=== PATIENT | male | born 1990 | race American Indian/Alaskan Native ===

== ENCOUNTER 2018-04-28 14:41 | Emergency (ER) | payer SELFPAY ==
[2018-04-28 14:51] VITALS: RESP 18; O2SAT 100
--- NOTE | 2018-04-28 15:47 | C.PDOC ---
History Of Present Illness 27 years old male presents to ED for complaints of sharp intermittent anterior mid-sternal chest pain that began 2 weeks ago. In contrary to triage, patient denies lightheadedness or dizziness. Patient also denies trauma, cough, shortness of breath, or any other physical complaints. Time Seen by Provider: 04/28/18 14:54 Chief Complaint (Nursing): Dizziness/Lightheaded History Per: Patient History/Exam Limitations: no limitations Onset/Duration Of Symptoms: Hrs, Intermittent Episodes Current Symptoms Are (Timing): Still Present Associated Symptoms Preceding Syncopal Episode: No Predromal Symptoms (Sudden Onset) Seizure Or Post-ictal Symptoms: None Fall Associated With With Symptoms: No Recent travel outside of the [place]: No - Symptoms Of CVA Recent Aspirin Use: Unknown Current Coumadin Use?: Unknown Recent Head Trauma: No Past Medical History Reviewed: Historical Data, Nursing Documentation, Vital Signs Vital Signs: Last Vital Signs Temp 98.0 F 04/28/18 14:49 Pulse 70 04/28/18 15:16 Resp 18 04/28/18 14:49 BP 111/75 04/28/18 15:16 Pulse Ox 100 04/28/18 14:49 - Medical History PMH: No Chronic Diseases Surgical History: No Surg Hx Family History: States: No Known Family Hx - Social History Hx Alcohol Use: No Hx Substance Use: No - Immunization History Hx Tetanus Toxoid Vaccination: No Hx Influenza Vaccination: No Hx Pneumococcal Vaccination: No Review Of Systems Except As Marked, All Systems Reviewed And Found Negative. Constitutional: Negative for: Fever, Chills Cardiovascular: Positive for: Chest Pain (anterior mid-sternal ) Respiratory: Negative for: Cough, Shortness of Breath Gastrointestinal: Negative for: Nausea, Vomiting, Diarrhea Skin: Negative for: Rash Neurological: Negative for: Weakness, Numbness Physical Exam - Physical Exam Appears: Well, Non-toxic, No Acute Distress Skin: Normal Color, Warm, Dry, No Rash Head: Atraumatic, Normacephalic Eye(s): bilateral: Normal Inspection, PERRL, EOMI Oral Mucosa: Moist Neck: Normal ROM, Supple Chest: Symmetrical, No Tenderness Cardiovascular: Rhythm Regular Respiratory: Normal Breath Sounds, No Rales, No Rhonchi, No Wheezing Gastrointestinal/Abdominal: Normal Exam, Bowel Sounds (Active ), Soft, No Tenderness, No Distention, No Guarding, No Rebound Back: Normal Inspection, No CVA Tenderness Extremity: Normal ROM Extremity: Bilateral: Atraumatic, Normal Color And Temperature, Normal ROM Pulses: Left Radial: Normal, Right Radial: Normal Neurological/Psych: Oriented x3, Normal Speech, Other (No focal deficits ) Gait: Steady ED Course And Treatment O2 Sat by Pulse Oximetry: 100 (RA) Pulse Ox Interpretation: Normal Medical Decision Making Medical Decision Making: Plan: * CXR EKG: * Normal sinus rhythm at 64 bpm * Negative EKG On re-exam, the patient reports improvement of symptoms. Lungs are CTA, heart is RRR, abdomen is soft, non-tender and the patient is tolerating PO well. Follow up with the medical doctor within 1-2 days. Return if worsened. Disposition - Disposition Referrals: [facility] [Outside] [facility] [facility] [Outside] Disposition: HOME/ ROUTINE Disposition Time: 16:39 Condition: GOOD Additional Instructions: Follow up with the medical doctor within 1-2 days. Return if worsened. Prescriptions: Naproxen [Naprosyn] 500 mg PO BID #20 tab Instructions: Costochondritis (DC) Forms: [employer] (Surinamese), Work Excuse - Clinical Impression Clinical Impression: Costochondritis - PA / FLIGHT SERVICE SPECIALIST / Resident Statement MD/DO has reviewed & agrees with the documentation as recorded. - Scribe Statement The provider has reviewed the documentation as recorded by the Armida Mcrae All medical record entries made by the Javiibgregory were at my direction and personally dictated by me. I have reviewed the chart and agree that the record accurately reflects my personal performance of the history, physical exam, medical decision making, and the department course for this patient. I have also personally directed, reviewed, and agree with the discharge instructions and disposition.
[2018-04-28 16:55] VITALS: BP 130/52; PULSE 72; TEMP 98
--- NOTE | 2018-04-28 17:08 | RAD ---
Date of service: 04/28/2018 HISTORY: chest pain COMPARISON: Chest radiographs 05/27/2010. TECHNIQUE: Chest PA and lateral FINDINGS: LUNGS: No active pulmonary disease. PLEURA: No significant pleural effusion identified. No pneumothorax apparent. CARDIOVASCULAR: No aortic atherosclerotic calcification present. Normal cardiac size. No pulmonary vascular congestion. OSSEOUS STRUCTURES: No significant abnormalities. VISUALIZED UPPER ABDOMEN: Normal. OTHER FINDINGS: None. IMPRESSION: No interval acute cardiopulmonary disease appreciated.
== END 2018-04-28 16:55 | disposition home or self-care (01) ==
LOC: C.ER 14:41
DX: M94.0 Chondrocostal junction syndrome [Tietze] (principal)

== ENCOUNTER 2018-05-03 15:44 | Emergency (ER) | payer SELFPAY ==
[2018-05-03 15:58] VITALS: O2SAT 99
[2018-05-03 16:26] LABS: BASO % 0.6 % (0.0-2.0); EOS # 0.1 K/uL (0.0-0.7); EOS % 1.3 % (0.0-4.0); HEMOGLOBIN 13.6 g/dL (12.0-18.0); LYMPH # 1.9 K/uL (1.0-4.3); LYMPH % 23.8 % (20.0-40.0); MEAN CORPUSCULAR HEMOGLOBIN 28.1 pg (27.0-31.0); MEAN CORPUSCULAR HGB CONC 31.9 g/dL (33.0-37.0); MEAN PLATELET VOLUME 10.3 fL (7.2-11.7); MONO # 0.8 K/uL (0.0-0.8); MONO % 9.5 % (0.0-10.0); NEUT # 5.2 K/uL (1.8-7.0); NEUT % 64.8 % (50.0-75.0); RBC 4.85 Mil/uL (4.40-5.90); RED CELL DISTRIBUTION WIDTH 13.9 % (11.5-14.5); WHITE BLOOD COUNT 8.1 K/uL (4.8-10.8)
--- NOTE | 2018-05-03 16:32 | RAD ---
Date of service: 05/03/2018 HISTORY: Shortness of breath COMPARISON: 04/28/2018. TECHNIQUE: Chest PA and lateral FINDINGS: LINES AND TUBES: None. LUNG AND PLEURA: The lungs are well inflated and clear. No pleural effusion or pneumothorax. HEART AND MEDIASTINUM: The heart is not enlarged. No aortic atherosclerotic calcifications present. The hilar and mediastinal contours are within normal limits. SKELETAL STRUCTURES: The bony structures are within normal limits for the patient's age. VISUALIZED UPPER ABDOMEN: Normal. OTHER FINDINGS: None. IMPRESSION: No active pulmonary disease.
[2018-05-03 16:48] LABS: ALB/GLOB RATIO 1.4 (1.0-2.1); ALBUMIN 4.4 g/dL (3.5-5.0); ALT/SGPT 10 U/L (21-72); AST/SGOT 39 U/L (17-59); BLOOD UREA NITROGEN 16 mg/dL (9-20); CALCIUM 8.6 mg/dl (8.6-10.4); GFR NON-AFRICAN AMERICAN > 60
--- NOTE | 2018-05-03 17:07 | C.PDOC ---
History Of Present Illness 27yo male, otherwise well, comes to ER for evaluation of a right sided sharp chest pain x 3 weeks. He states the pain is worse with movement and deep inspiration. Patient otherwise denies radiation of pain, weakness, sweats, shortness of breath or nausea. Patient has been taking naproxen, with some relief in pain. He presents today due to persistence of pain. Patient denies history of DVT or PE as well. PMD: None Time Seen by Provider: 05/03/18 16:06 Chief Complaint (Nursing): Chest Pain History Per: Patient History/Exam Limitations: no limitations Onset/Duration Of Symptoms: Persistent Current Symptoms Are (Timing): Still Present Quality: Sharp Associated Symptoms: denies: Nausea, Dyspnea, Diaphoresis, Syncope Additional History Per: Patient Past Medical History Reviewed: Historical Data, Nursing Documentation, Vital Signs Vital Signs: Last Vital Signs Temp 98.4 F 05/03/18 15:57 Pulse 72 05/03/18 15:57 Resp 20 05/03/18 15:57 BP 120/69 05/03/18 15:57 Pulse Ox 99 05/03/18 15:57 - Medical History PMH: No Chronic Diseases Denies: Deep Vein Thrombosis, Pulmonary Embolism Surgical History: No Surg Hx Family History: States: No Known Family Hx - Social History Hx Alcohol Use: No Hx Substance Use: No - Immunization History Hx Tetanus Toxoid Vaccination: No Hx Influenza Vaccination: No Hx Pneumococcal Vaccination: No Review Of Systems Except As Marked, All Systems Reviewed And Found Negative. Constitutional: Negative for: Fever, Chills, Sweats Cardiovascular: Positive for: Chest Pain Respiratory: Negative for: Cough, Shortness of Breath Gastrointestinal: Negative for: Vomiting Musculoskeletal: Negative for: Neck Pain, Shoulder Pain, Arm Pain Physical Exam - Physical Exam Appears: Non-toxic, No Acute Distress Skin: Normal Color, Warm, Dry Head: Atraumatic, Normacephalic Eye(s): bilateral: Normal Inspection Neck: Normal ROM, Supple Chest: Symmetrical, Tenderness (reproducible tenderness right anterior chest wall) Cardiovascular: Rhythm Regular Respiratory: Normal Breath Sounds, No Wheezing Gastrointestinal/Abdominal: Normal Exam, Soft, No Tenderness Back: Normal Inspection Extremity: Normal ROM Neurological/Psych: Oriented x3 ED Course And Treatment - Laboratory Results Result Diagrams: 05/03/18 16:21 05/03/18 16:21 Lab Results: Troponin I < 0.0120 ng/mL (0.00-0.120) 05/03/18 16:21 Total Bilirubin 0.5 mg/dL (0.2-1.3) 05/03/18 16:21 AST 39 U/L (17-59) 05/03/18 16:21 ALT 10 U/L (21-72) L 05/03/18 16:21 Alkaline Phosphatase 82 U/L (38-126) 05/03/18 16:21 Total Protein 7.5 g/dL (6.3-8.3) 05/03/18 16:21 Albumin 4.4 g/dL (3.5-5.0) 05/03/18 16:21 Globulin 3.1 gm/dL (2.2-3.9) 05/03/18 16:21 Albumin/Globulin Ratio 1.4 (1.0-2.1) 05/03/18 16:21 ECG: Interpreted By Me, Viewed By Me ECG Rhythm: Sinus Rhythm Interpretation Of ECG: Normal intervals, normal axis, j-point ST segment elevation O2 Sat by Pulse Oximetry: 99 (RA) Pulse Ox Interpretation: Normal - Radiology CXR: Interpreted by Me, Viewed By Me CXR Interpretation: Yes: No Acute Disease Against Medical Advice - AMA Patient Left Against Medical Advice: 1720 The patient declines admission to the hospital and wishes to leave the Emergency Department. This action is against my medical advice. This decision was made with informed refusal. The patient was told that admission to the hospital is necessary. Explanation of the reasons why were discussed. The risks of leaving were explained to the patient and include, but are not limited to, worsening of known or currently unknown conditions, permanent d isability and from undiagnosed or untreated conditions. The patient has the capacity to make this informed decision and understands my explanation of the current medical problem and risks of leaving. The patient voluntarily accepts these risks and signed an AMA form documenting our conversation. The patient was given the opportunity to ask questions and reconsider. The patient was encouraged to return to the Emergency Department at any time for further care. Medical Decision Making Medical Decision Makinyo male with right sided chest pain; unlikely acute IN Case discussed with Dr. Pastrana (code heart) who recommends cardiac enzyme tests Plan: -- Labs -- EKG -- Toradol 30mg IV -- Aspirin 81mg PO -- CXR 1700 Labs reviewed, troponin < 0.[address] Pastrana, who recommends admission for observation [address] Villaseñor, who accepts patient for admission. 1720 Plan of care discussed with patient, who states he does not want admission and wishes to leave against medical advice. Risks of leaving AMA discussed extensively with patient, who expresses understan ding but still wishes to leave AMA. Return precautions discussed extensively with patient. Disposition - Disposition Disposition: AGAINST MEDICAL ADVICE Disposition Time: 17:20 Condition: STABLE Additional Instructions: you are signing out against medical advice and therefore assuming responsibility of your care you do no hold my staff and I responsible for potential negative outcome including return to Er at anytime. Follow up with your doctor immediately. Instructions: Chest Pain Forms: Work Excuse - Clinical Impression Clinical Impression: Chest pain - Scribe Statement The provider has reviewed the documentation as recorded by the Armida Robles Provider Attestation: All medical record entries made by the Armida were at my direction and personally dictated by me. I have reviewed the chart and agree that the record accurately reflects my personal performance of the history, physical exam, medical decision making, and the department course for this patient. I have also personally directed, reviewed, and agree with the discharge instructions and disposition.
[2018-05-03 17:35] VITALS: BP 116/74; PULSE 70; RESP 18; TEMP 97.7
--- NOTE | 2018-05-08 00:04 | CARD ---
APPROVED REPORT Date of service: 05/03/2018 EKG Measurement Heart [id number] <Conclusion> Normal sinus rhythm with sinus arrhythmia ST elevation, early repolarization changes v acute pericarditis Abnormal ECG
--- NOTE | 2018-05-08 00:06 | CARD ---
APPROVED REPORT Date of service: 05/03/2018 EKG Measurement Heart [id number] <Conclusion> Normal sinus rhythm ST elevation, consider early repolarization changes v acute pericarditis Abnormal ECG
== END 2018-05-03 17:40 | disposition left against medical advice (07) ==
LOC: C.ER 15:44
DX: R07.9 Chest pain, unspecified (principal)
CPT/HCPCS: 71046; 80053; 82550; 84484; 85025; 96374; 99285; J1885

== ENCOUNTER 2018-05-04 18:50 | Emergency (ER) | payer SELFPAY ==
[2018-05-04 19:54] VITALS: BP 121/79; PULSE 66; RESP 14; O2SAT 100
[2018-05-04 19:56] VITALS: TEMP 98
--- NOTE | 2018-05-04 20:26 | C.PDOC ---
History Of Present Illness 27 y/o male pt presents to the ER c/o intermittent chest pain for x3 weeks. Chest is non-pleuritic and non exertional. Pt notes the pain feels like something is pressing on his chest and is located on the mid-sternal. Chest pain would last 5-10 minutes and sometimes SOB with accompany the pain. Pt felt anxious about his chest pain today which prompted his visit to the ER. Pt notes he took naprosyn which gives him mild relief. Pt was seen x2 days ago for same complaint but signed an AMA. Pt currently does not have any chest pain and denies any other associated sx. Time Seen by Provider: 05/04/18 19:39 Chief Complaint (Nursing): Chest Pain History Per: Patient History/Exam Limitations: no limitations Onset/Duration Of Symptoms: Days (x3 weeks) Current Symptoms Are (Timing): Still Present Past Medical History Reviewed: Historical Data, Nursing Documentation, Vital Signs Vital Signs: Last Vital Signs Temp 98 F 05/04/18 19:55 Pulse 66 05/04/18 19:48 Resp 14 05/04/18 19:48 BP 121/79 05/04/18 19:48 Pulse Ox 100 05/04/18 19:48 Family History: States: No Known Family Hx - Social History Hx Alcohol Use: No Hx Substance Use: No - Immunization History Hx Tetanus Toxoid Vaccination: No Hx Influenza Vaccination: No Hx Pneumococcal Vaccination: No Review Of Systems Constitutional: Negative for: Fever, Chills Cardiovascular: Positive for: Chest Pain (intermittent ) Respiratory: Positive for: Shortness of Breath (intermittent ) Gastrointestinal: Negative for: Nausea, Vomiting Genitourinary: Negative for: Dysuria, Hematuria Musculoskeletal: Negative for: Back Pain Skin: Negative for: Rash Neurological: Negative for: Weakness, Numbness Psych: Negative for: Anxiety Physical Exam - Physical Exam Appears: Non-toxic, No Acute Distress Skin: Warm, Dry Head: Normacephalic Eye(s): bilateral: Normal Inspection Nose: Normal Oral Mucosa: Moist Throat: Normal Neck: Normal ROM, Supple Chest: Symmetrical, No Deformity Cardiovascular: Rhythm Regular Respiratory: Normal Breath Sounds Gastrointestinal/Abdominal: Soft, No Tenderness Back: No CVA Tenderness Extremity: Normal ROM (x4) Neurological/Psych: Oriented x3, Normal Speech ED Course And Treatment ECG: Interpreted By Me ECG Rhythm: Sinus Rhythm Interpretation Of ECG: Normal axis, normal intervals, J point elevation likely benign early repolarization O2 Sat by Pulse Oximetry: 100 (RA) Pulse Ox Interpretation: Normal Medical Decision Making Medical Decision Making: Last EKG 05/03 nml sinus 65 nml axis nml interval benign early repolarization no stemi Patient was seen two days ago for similar chest pain. EKG unchanged since then. CXR then was unremarkable. Cardiac enzymes done and were negative. Patient was advised to stay for observation, but signed out AMA. However patient with similar EKG today and no chest pain currently. Advised outpatient followup with PMD. Disposition - Disposition Disposition: HOME/ ROUTINE Disposition Time: 20:25 Condition: GOOD Additional Instructions: MARLENI ROACH, thank you for letting us take care of you today. Your provider was Paulina Alvarado MD and you were treated for SOB. The emergency medical care you received today was directed at your acute symptoms. If you were prescribed any medication, please fill it and take as directed. It may take several days for your symptoms to resolve. Return to the Emergency Department if your symptoms worsen, do not improve, or if you have any other problems. Please contact your doctor or call one of the physicians/clinics you have been referred to that are listed on the Patient Visit Information form that is included in your discharge packet. Bring any paperwork you were given at discharge with you along with any medications you are taking to your follow up visit. Our treatment cannot replace ongoing medical care by a primary care provider outside of the emergency department. Thank you for allowing the [facility] team to be part of your care today. If you had an X-Ray or CT scan: A Radiologist will review the ED reading if any change in treatment is needed we will contact you. If you had a blood, urine, or wound culture: It will take several days for the results, if any change in treatment is needed we will contact you. If you had an STI test: It will take 48 hours for the results. Please call after 1 week if you have not heard back. Instructions: Chest Pain (DC) Forms: [employer] (Hungarian), Work Excuse - Clinical Impression Clinical Impression: Chest discomfort - Scribe Statement The provider has reviewed the documentation as recorded by the Scribe Kristi Dixon Provider Attestation: All medical record entries made by the Scribe were at my direction and personally dictated by me. I have reviewed the chart and agree that the record accurately reflects my personal performance of the history, physical exam, medical decision making, and the department course for this patient. I have also personally directed, reviewed, and agree with the discharge instructions and disposition.
== END 2018-05-04 20:49 | disposition home or self-care (01) ==
LOC: C.ER 18:50
DX: R07.89 Other chest pain (principal)

== ENCOUNTER 2018-06-01 14:28 | Emergency (ER) | payer SELFPAY ==
[2018-06-01 14:32] VITALS: BMI 25.0
[2018-06-01 14:34] VITALS: PULSE 64; TEMP 97.8
--- NOTE | 2018-06-01 15:34 | C.PDOC ---
History Of Present Illness 27 y/o male presents to ED for medical evaluation of SOB x2 weeks. Patient states that he was eating food, particularly solids, when he noticed difficulty breathing. He notes this is the first time this happened to him. He called EMS and was taken to [facility] where he was diagnosed with reflux, and given antireflux medication, unknown name, twice a day. States he notices some improvement but not much. In addition, he complains of SOB when walking but denies SOB with exercise or any other activity. States if he walks a block, he starts having difficulty breathing. Denies history of asthma or smoking. Also denies fever, chills, chest pain, nausea, vomiting, abdominal pain, or recent illness. He reports he hasnt seen any specialist for his current complaint. Chief Complaint (Nursing): Shortness Of Breath History Per: Patient History/Exam Limitations: no limitations Onset/Duration Of Symptoms: Days Current Symptoms Are (Timing): Still Present Past Medical History Reviewed: Historical Data, Nursing Documentation, Vital Signs Vital Signs: Last Vital Signs Temp 97.8 F 06/01/18 14:32 Pulse 64 06/01/18 14:32 Resp 18 06/01/18 14:32 BP 115/73 06/01/18 14:32 Pulse Ox 100 06/01/18 14:32 - Medical History PMH: Denies: Deep Vein Thrombosis, Pulmonary Embolism Family History: States: No Known Family Hx - Social History Hx Alcohol Use: No Hx Substance Use: No - Immunization History Hx Tetanus Toxoid Vaccination: No Hx Influenza Vaccination: No Hx Pneumococcal Vaccination: No Review Of Systems Constitutional: Negative for: Fever, Chills Cardiovascular: Negative for: Chest Pain Respiratory: Positive for: Shortness of Breath Gastrointestinal: Negative for: Nausea, Vomiting, Abdominal Pain, Diarrhea Genitourinary: Negative for: Dysuria Musculoskeletal: Negative for: Neck Pain, Back Pain Neurological: Negative for: Headache, Dizziness Physical Exam - Physical Exam Appears: Non-toxic, No Acute Distress Skin: Warm, Dry Head: Atraumatic, Normacephalic Eye(s): bilateral: Normal Inspection Ear(s): Bilateral: TM Obscured By Wax Oral Mucosa: Moist Throat: Erythema, No Exudate Neck: Supple Cardiovascular: Rhythm Regular, No Murmur Respiratory: Normal Breath Sounds, No Rales, No Rhonchi, No Wheezing Gastrointestinal/Abdominal: Soft, No Tenderness Extremity: No Pedal Edema Extremity: Bilateral: Atraumatic, Normal Color And Temperature, Normal ROM Neurological/Psych: Oriented x3, Normal Speech, Normal Motor, Normal Sensation ED Course And Treatment ECG: Interpreted By Me, Viewed By Me ECG Rhythm: Sinus Bradycardia (with sinus arrhythmia) Interpretation Of ECG: Early repolarization Rate From EC O2 Sat by Pulse Oximetry: 100 (RA) Pulse Ox Interpretation: Normal - Other Rad CXR X-Ray: Read By Radiologist Interpretation: Findings: No focal infiltrate or effusion. Heart size within normal limits. Impression. No focal infiltrate or effusion. Medical Decision Making Medical Decision Making: Plan: --EKG --Chest XR Disposition Counseled Patient/Family Regarding: Studies Performed, Diagnosis, Need For Followup, Rx Given - Disposition Referrals: [facility] [Outside] Disposition: HOME/ ROUTINE Disposition Time: 17:01 Condition: STABLE Additional Instructions: Follow up in Clinic to see GI specialist for Reflux and Master Sheet Clerk for Chest pain/ SOB Start Pepcid 20mg in the morning and Zantac 150mg at night Avoid foods listed in patient education packet Return to ED if symptoms worsen Prescriptions: Famotidine [Pepcid] 20 mg PO DAILY #30 tab Ranitidine HCl [Zantac] 150 mg PO HS #30 tablet Instructions: Acid Reflux (Gastroesophageal Reflux Disease), Adult (DC), Shortness of Breath (Dyspnea) (DC) Forms: [employer] (Djiboutian) - Clinical Impression Clinical Impression: SOB (shortness of breath) on exertion, GERD (gastroesophageal reflux disease) - PA / WOOL GROWER / Resident Statement MD/DO has reviewed & agrees with the documentation as recorded. - Scribe Statement The provider has reviewed the documentation as recorded by the Scribe Josselyn Sandhu All medical record entries made by the Javiibgregory were at my direction and personally dictated by me. I have reviewed the chart and agree that the record accurately reflects my personal performance of the history, physical exam, medical decision making, and the department course for this patient. I have also personally directed, reviewed, and agree with the discharge instructions and disposition.
[2018-06-01 15:39] VITALS: RESP 16
--- NOTE | 2018-06-01 16:14 | RAD ---
Chest x-ray two views HISTORY: Shortness of breath. Comparison: 05/03/2018 Findings: No focal infiltrate or effusion. Heart size within normal limits. Impression No focal infiltrate or effusion.
[2018-06-01 17:13] VITALS: BP 118/79
[2018-06-01 18:18] VITALS: O2SAT 100
--- NOTE | 2018-06-03 17:20 | CARD ---
APPROVED REPORT Date of service: 06/01/2018 EKG Measurement Heart [id number] <Conclusion> Sinus bradycardia with sinus arrhythmia Early repolarization Otherwise normal ECG
== END 2018-06-01 17:12 | disposition home or self-care (01) ==
LOC: C.ER 14:28
DX: K21.9 Gastro-esophageal reflux disease without esophagitis (principal); R06.02 Shortness of breath

== ENCOUNTER 2018-06-06 15:54 | Emergency (ER) | payer MEDICAID, OTHER ==
[2018-06-06 15:55] VITALS: BMI 25.0
[2018-06-06 16:00] VITALS: RESP 20
[2018-06-06 16:51] VITALS: BP 117/75; PULSE 73; TEMP 98; O2SAT 99
--- NOTE | 2018-06-06 17:08 | C.PDOC ---
History Of Present Illness 27 year old male presents to ED with complaint of having an allergic reaction to Prilosec five minutes after he took it. Patient states that he felt his throat tighten and felt SOB afterwards. He was previously seen recently in the ED for reflux and has been noncompliant with meds. He has yet to see GI or Cardiology. He denies history of asthma or smoking. Patient denies fever, chills, chest pain, nausea, vomiting, abdominal pain,or recent illness. Chief Complaint (Nursing): Allergic Reaction History Per: Patient History/Exam Limitations: no limitations Onset/Duration Of Symptoms: Hrs Current Symptoms Are (Timing): Still Present Initiating Event: Possible Allergic Reaction Quality: Tightness Associated Symptoms: denies: Fever, Chills, Sweating, Chest Pain Past Medical History Reviewed: Historical Data, Nursing Documentation, Vital Signs Vital Signs: Last Vital Signs Temp 98 F 06/06/18 16:50 Pulse 73 06/06/18 16:50 Resp 20 06/06/18 16:50 BP 117/75 06/06/18 16:50 Pulse Ox 99 06/06/18 16:50 - Medical History PMH: Denies: Deep Vein Thrombosis, Pulmonary Embolism Surgical History: No Surg Hx Family History: States: Unknown Family Hx - Social History Hx Alcohol Use: No Hx Substance Use: No - Immunization History Hx Tetanus Toxoid Vaccination: No Hx Influenza Vaccination: No Hx Pneumococcal Vaccination: No Review Of Systems Constitutional: Negative for: Fever, Chills, Weakness Cardiovascular: Negative for: Chest Pain Respiratory: Positive for: Shortness of Breath. Negative for: Wheezing Gastrointestinal: Negative for: Nausea, Vomiting, Abdominal Pain Musculoskeletal: Negative for: Neck Pain Skin: Negative for: Rash Neurological: Negative for: Weakness, Numbness, Headache, Dizziness Physical Exam - Physical Exam Appears: Well, Non-toxic, No Acute Distress Skin: Normal Color, Warm, Dry Head: Atraumatic, Normacephalic, No Swelling Eye(s): bilateral: Normal Inspection, PERRL Ear(s): Bilateral: TM Obscured By Wax Nose: No Discharge Oral Mucosa: Moist Tongue: Normal Appearing, No Swelling Lips: No Swelling Throat: Erythema Neck: Normal ROM, Supple Chest: Symmetrical, No Deformity Cardiovascular: Rhythm Regular, No Murmur Respiratory: Normal Breath Sounds, No Accessory Muscle Use, No Stridor, No Wheezing Gastrointestinal/Abdominal: Soft, No Tenderness Extremity: Bilateral: Atraumatic, Normal Color And Temperature, Normal ROM Neurological/Psych: Oriented x3, Normal Speech, Normal Cognition, Normal Motor, Normal Sensation ED Course And Treatment O2 Sat by Pulse Oximetry: 99 (in RA) Medical Decision Making Medical Decision Making: Impression: Adverse reaction to Prilosec, Anxiety VSS, Afebrile No Respiratory distress Plan Strongly encouraged to follow up with [facility] or with Mental Health to assess for Anxiety in 1-2 days Strongly encouraged to follow up with GI in 1-2 days for reflux and Cardiology/PMD for SOB Advised pt to stop prilosec and start Tums as needed for heartburn Patient verbalized understanding and is in agreement with plan Patient is stable for discharge Disposition Counseled Patient/Family Regarding: Diagnosis, Need For Followup - Disposition Referrals: [facility] [Outside] [facility] [Outside] [facility] [Outside] [facility] [Outside] Lukas Cummins MD [Staff Provider] - Disposition: HOME/ ROUTINE Disposition Time: 16:50 Condition: STABLE Additional Instructions: Strongly encouraged to follow up with [facility] or with Mental Health to assess for Anxiety in 1-2 days Strongly encouraged to follow up with GI in 1-2 days for reflux Stop prilosec and start Tums as needed for heartburn Return to ED if symptoms worsen Instructions: Acid Reflux (Gastroesophageal Reflux Disease), Adult (DC), Adverse Drug Reactions, Adult (DC) Forms: [employer] ([place]ian) - Clinical Impression Clinical Impression: GERD (gastroesophageal reflux disease), Adverse reaction to drug - PA / [employer] / Resident Statement MD/DO has reviewed & agrees with the documentation as recorded. (Fannie Obrien) - Scribe Statement The provider has reviewed the documentation as recorded by the Scribe (Fannie Obrien) All medical record entries made by the Scribe were at my direction and personally dictated by me. I have reviewed the chart and agree that the record accurately reflects my personal performance of the history, physical exam, medical decision making, and the department course for this patient. I have also personally directed, reviewed, and agree with the discharge instructions and disposition.
== END 2018-06-06 17:17 | disposition home or self-care (01) ==
LOC: C.ER 15:54
DX: R06.02 Shortness of breath (principal); T47.1X5A Adverse effect of other antacids and anti-gastric-secretion drugs, initial encounter; K21.9 Gastro-esophageal reflux disease without esophagitis